=== PATIENT | female | born 1950 | race Caucasian/White ===

== ENCOUNTER 2016-11-08 05:48 | Day surgery (SDC) | payer MEDICARE, OTHER ==
[2016-11-05 14:54] LABS: HEMATOCRIT 38.1 % (36.0-48.0); HEMOGLOBIN 12.7 g/dL (12-16); MCH 31.3 pg (26.0-34.0); MCHC 33.3 g/dL (31.0-37.0); MCV 93.8 fL (80.0-100.0); MEAN PLATELET VOLUME 10.7 fL (7.4-10.4); RBC 4.06 10x6/uL (4.00-5.40); RDW 13.2 % (11.5-14.5); WBC 5.5 10x3/uL (4.8-10.8)
[~2016-11-08] VITALS: Ht 157.5 cm; Wt 52.2 kg
[~2016-11-08 05:48] MED LIST: ELAVIL25 MG PO; LEVOTHYROXINE50 MCG PO; MOBIC7.5 MG PO; MULTIPLE VITAMI1 TA1 PO; ZYRTEC10 MG PO
[2016-11-08 09:23] VITALS: BP 117/75; Ht 157.5 cm; Wt 52.2 kg
[2016-11-08] MEDS ORDERED: PERCOCET 10/3251 TA1 PO (12:44)
--- NOTE | 2016-11-08 15:16 | NUR ---
5050 DISCHARGE INSTRUCTIONS REVIEWED WITH PATIENT & PENDELUM EXERCISES DEMONSTRATED; VERBALIZED UNDERSTANDING
--- NOTE | 2016-11-10 15:22 | OP ---
PATIENT NAME: RUBINA SELF MEDICAL RECORD: [id number] :46 LOCATION:D.[facility] ADMISSION DATE: SURGEON: DARRIAN GARZA MD DATE OF OPERATION: 11/08/2016 Orthopedic Surgery Operative Note PREOPERATIVE DIAGNOSES: 1. Rotator cuff tear of the right shoulder. 2. Impingement syndrome of the right shoulder. 3. Acromioclavicular arthritis of the left shoulder. POSTOPERATIVE DIAGNOSES: 1. Rotator cuff tear of the right shoulder. 2. Impingement syndrome of the right shoulder. 3. Acromioclavicular arthritis of the left shoulder. PROCEDURES: 1. Arthroscopic rotator cuff repair of the right shoulder. 2. Arthroscopic distal clavicle excision of the right shoulder done through separate incision -- 1 cm. 3. Arthroscopic subacromial decompression, acromioplasty and bursectomy. SURGEON: Darrian Garza MD ANESTHESIA: General. INTRAOPERATIVE COMPLICATIONS: None. SUMMARY OF PATHOLOGIC FINDINGS: The patient has full thickness rotator cuff tearing at the distal aspect of the supraspinatus tendinous footprint. At the greater tuberosity the patient had a profound excoriation of the undersurface of the acromion with coracoacromial ligament attritional changes as well as grade IV AC arthropathy. OPERATIVE SUMMARY IN DETAIL: After obtaining the appropriate preoperative orthopedic surgery consent as well as anesthetic consultation, evaluation and clearance, the patient was brought to the operating room and placed on the operating table in supine position. After general laryngeal mask was administered, the patient was placed in a left lateral decubitus position. All pressure points were well padded to include down leg peroneal pad as well as axillary roll. The patient was held firmly to the operating table. Using the vacuum pack suction system, right upper extremity and shoulder were then prepped and draped in routine sterile fashion. The arm was held in the Arthrex traction boom at 30 degrees of forward flexion, 30 degrees of abduction with 10 pounds of traction laterally. Arthroscopy was established in the glenohumeral joint from a posterior portal. Anterior portal was established in the anterior safe portal. Diagnostic arthroscopy of the rotator cuff showed the above findings. Transarthroscopic rotator cuff tear portal was created and rotator cuff tear was debrided underneath and the supraspinatus tendinous footprint was decorticated for good bleeding bone bed. Attention then turned to the subacromial space. In the subacromial space, the undersurface of the acromion was denuded of all soft tissue elements using the [place] tissue ablation system. Coracoacromial ligament was released. A 5-0 barrel bur was then used to perform acromioplasty at the level of acromioclavicular joint. Having completed this, attention was OPERATIVE REPORT [id number] BETTIEALISERUBINA DAPHNIE turned to the distal clavicle. A separate arthroscopic anterior portal, 1 cm of the distal clavicle was excised using the 5-0 barrel bur. Attention was then returned to the rotator cuff. Further decortication was carried out followed by passing a #2 FiberTape in an inverted mattress fashion, which was then anchored laterally with a 5.5 SwiveLock from Arthrex. Having completed this, arthroscopy portals were closed in routine interrupted fashion using 4-0 Prolene. Sterile dressings were applied. The patient was awakened, taken to recovery room in stable condition. All final needle and sponge counts were correct. TRANSINT:[id number] Voice Confirmation ID: [id number] DOCUMENT ID: [id number] KAYLA LAWSON, DARRIAN BECERRA at 1522 CC: [id number] DICTATION DATE: 11/08/16 1242 CONCRETE PANEL INSTALLER: 11/08/162150 [facility] 11/08/16 [id number] [place] [address]
== END 2016-11-08 14:55 | disposition home or self-care (01) ==
LOC: D.OPS 05:48 → D.PAN 10:30 → D.OPS 14:25 → D.PAN 14:25 → D.OPS 14:55 → D.PAN 15:00
PROVIDERS: Anesthesiology
DX: M75.121 Complete rotator cuff tear or rupture of right shoulder, not specified as traumatic (principal); M75.41 Impingement syndrome of right shoulder; M13.811 Other specified arthritis, right shoulder

== ENCOUNTER → 2019-09-26 12:12 | Outpatient (CLI) | payer MEDICARE, OTHER ==
[2016-11-08 09:23] VITALS: BMI 21.0
--- NOTE | ~2019-09-26 | HEMODYNAMI ---
PATIENT:RUBINA SELF MEDICAL RECORD: [id number] : 46 [facility] ADMISSION DATE: 09/26/19 Generatedon:09/26/201913:51 Patient name: RUBINA SELF Patient #: [id number] SSN: : 1950 Date of study: 09/26/2019 Page: Of Hemodynamic Procedure Report Patient Data Patient Demographics Procedure consent was obtained First Name: RUBINA Gender: Female Last Name: CLAIR : 1950 [facility] Initial: DAPHNIE Age: 69 year(s) Patient #: [id number] Race: Unknown Additional ID: [id number] Contact details [address]: [address] [place] [address] State: [place] City: [place] Zip code: [address] Past Medical History Allergies Allergen Reaction Date Comments Reported Other allergy 09/26/2019 SULFA Admission Admission Data Admission Date: 09/26/2019 Admission Time: 12:12 Procedure Procedure Types Cath Procedure Peripheral Cath Diagnostic Procedure Miscellaneous Aspiration/Injection (Joint) Procedure Description Procedure Date Procedure Date: 09/26/2019 Procedure Start Time: 13:15 Procedure Staff Name Function Rakan Stephens RT Monitor Johnny Felton MD Performing Physician Ella Berrios RN Nurse Procedure Data Cath Procedure Fluoroscopy Diagnostic fluoroscopy Total fluoroscopy Time: 0.4 time: 0.4 min min Diagnostic fluoroscopy Total fluoroscopy dose: 3 dose: 3 mGy mGy Hemodynamics Rest Pre Cath Intra NCS Post Cath Procedure Log Time Note 13:05:49 Rakan Stephens RT (R) (CV) sent for patient. Start room use. 13:05:56 Time tracking: Regular hours (M-F 7:00 - 5:00) 13:06:03 Patient received from Other to IR Alert and oriented. Tansferred to table in Supine position. 13:06:05 Signed procedure consent form obtained from patient. 13:06:07 Full Disclosure recording started 13:06:08 - 13:06:09 Pre-procedure instructions explained to patient. 13:06:10 Pre-procedure instructions explained to patient. 13:06:21 Patient allergic to Other allergySULFA 13:06:27 Is patient on blood thinner?Yes 13:06:38 Right Hip was prepped with betadine and draped in sterile fashion. 13:11:17 Physician arrived 13:11:18 Final Timeout: patient, procedure, and site verified with staff and physician. All members of the team are in agreement. 13:11:18 --------ALL STOP TIME OUT------ 13:11:24 Right groin site verified by team. 13:11:31 Sedation plan: Local Anesthetic Medication:Lidocaine 13:11:49 SAFE-T PLUS MYELOGRAM TRAY opened to sterile field. 13:15:34 Procedure started. 13:15:38 Local anesthetic to right GROIN with Lidocaine 1% by Johnny Felton MD.INITIAL ACCESS ONLY 13:23:27 Isovue 200 15ml used of contrast 13:23:37 Procedure ended.(Physican Out) 13:23:48 Fluoroscopy time 00.40 minutes. 13:23:55 Fluoroscopy dose: 3 mGy 13:23:55 Flurop Dose total: 3 13:24:14 SITE STABLE BANDAIDE APPLIED PT SENT HOME 13:24:38 Full Disclosure recording stopped Device Usage Item Name Manufacture Quantity Catalog Hospital Part Current Minimal Lot# / Number Charge Number Stock Stock Serial# Code SAFE-T CareFusion 1 [id number] PLUS MYELOGRAM TRAY Signature Audit Sargent Stage Time Signature Unsigned Intra-Procedure 09/26/2019 Rakan Rakan Shuffield RT 1:24:32 PM Shuffield RT (R) (CV) 09/26/2019 (R) (CV) 1:36:50 PM Intra-Procedure 09/26/2019 Rakan Rakan Shuffield RT 1:37:39 PM Shuffield RT (R) (CV) 09/26/2019 (R) (CV) 1:43:00 PM Intra-Procedure 09/26/2019 Rakan 1:51:27 PM Angelo RT (R) (CV) [facility] [address] [place] [address]
[~2019-09-26 12:12] MED LIST changes: +PERCOCET 10/3251 TA1 PO
== END | disposition home or self-care (01) ==
LOC: D.RAD 12:12
PROVIDERS: ATTEND Orthopaedic Surgery
DX: M16.11 Unilateral primary osteoarthritis, right hip (principal)

== ENCOUNTER → 2019-11-28 13:37 | Outpatient (CLI) | payer MEDICARE, OTHER ==
[2016-11-08 09:23] VITALS: BMI 21.0
== END | disposition home or self-care (01) ==
LOC: D.LABREF 13:37
PROVIDERS: ATTEND Orthopaedic Surgery
DX: M16.11 Unilateral primary osteoarthritis, right hip (principal)

== ENCOUNTER 2019-11-29 11:23 | Inpatient (IN) | payer MEDICARE, OTHER ==
[~2019-11-29] VITALS: Ht 152.4 cm; Wt 55.0 kg
[2019-12-04] MEDS ORDERED: MAG-OX 400 MG400 MG PO (14:14)
[2019-12-05 09:48] LABS: APTT 21.4 SECONDS (22.8-39.4); INR 0.9 (0.85-1.17); PROTIME 12.1 SECONDS (11.6-15.0)
[2019-12-05 09:55] LABS: ANION GAP 11.5 mmol/L (8-16); CALCIUM 9.1 mg/dL (8.5-10.1); CARBON DIOXIDE 28.3 mmol/L (21.0-32.0); CREATININE - SERUM 0.9 mg/dL (0.6-1.3); POTASSIUM - SERUM 3.8 mmol/L (3.5-5.1)
[2019-12-05 10:14] LABS: BASOPHILS 1.3 % (0-2); EOSINOPHILS 4.9 % (0-7); IMMATURE GRANULOCYTES 0.2 % (0-5); MCH 31.6 pg (26.0-34.0); MCHC 32.6 g/dL (31.0-37.0); MCV 97.1 fL (80.0-100.0); MEAN PLATELET VOLUME 9.2 fL (7.4-10.4); MONOCYTES 12.4 % (2-11); NEUTROPHILS 54.2 % (40-80); RBC 4.43 10x6/uL (4.00-5.40); RDW 13.1 % (11.5-14.5); WBC 6.4 10x3/uL (4.8-10.8)
[2019-12-05 10:20] LABS: PLATELET COUNT 377 10x3/uL (130-400)
[2019-12-11 11:19] VITALS: BP 101/73; BMI 23.4
--- NOTE | 2019-12-11 13:27 | NUR ---
THROUGH TRAFFIC KEPT TO MINIMUM. HIBACLENS AND ALCOHOL APPLIED BEFORE CHLORAPREP. STERILE GOWNED AND GLOVED TO SCRUB WITH CHLORAPREP
--- NOTE | 2019-12-11 15:26 | MORECARE ---
CASE MANAGEMENT DISCHARGE SUMMARY PATIENT: RUBINA SELF UNIT: [id number] ADM DATE: 12/11/19 AGE: 69 : 48 SEX: F ROOM/BED: D.1207 AUTHOR: FORD GAY PHYSICIAN: REFERRING PHYSICIAN: KIARA DUNN DO DATE OF SERVICE: 12/11/19 Discharge Plan Patient Name: RUBINA SELF Facility: [facility]:[place] : 1950 Planned Disposition: Anticipated Discharge Date: Discharge Date: Expected LOS: 0 Initial Reviewer: [email or web address] Initial Review Date: 12/11/2019 Generated: 12/11/19 4:25 pm Patient Name: RUBINA SELF Page [phone] at 1526 All edits/amendments must be made on the electronic document DICTATION DATE: 12/11/19 1525 MATTRESS STRIPPER: ISHMAEL 12/11/19 1525 RPT#: [id number] [place] DATE: STATUS: ADM IN [facility] [address] [place] [address] END OF REPORT
[2019-12-11 15:44] VITALS: BP 120/75
[2019-12-11 16:18] VITALS: BP 123/71
--- NOTE | 2019-12-11 16:21 | NUR ---
RECEIVED PT FROM RECOVERY. PT IS AAO AND ANSWERS ALL QUESTIONS APPROPRIATELY. NO S/S OF DISTRESS NOTED. RR EVEN AND UNLABORED ON RA. VSS AND WNL. 1/2NS INFUSING @50ML/HR VIA L.FOR PIV. PT DENIES ANY NEEDS AT THIS TIME. WILL CTM.
[2019-12-11 16:45] VITALS: Ht 152.4 cm; Wt 55.0 kg
[2019-12-11 20:38] VITALS: BP 113/80
--- NOTE | 2019-12-11 21:40 | NUR ---
PT IS AWAKE ALERT AND ORIENTED X4 NO SIGNS OF DISTRESS NOTED. RESPIRATIONS EVEN AND UNLABORED. VITAL SIGNS ARE STABLE. PT C/O OF PAIN TO RIGHT HIP. PRN MEDICATION GIVEN. SALTINE CRACKERS GIVEN PER PTS REQUEST. PT ENCOUARGED TO CALL FOR HELP WHEN GETTING IN AND OUT OF BED. CALL LIGHT WITH IN REACH. WILL CONTINUE TO MONITOR
[2019-12-12 01:05] VITALS: BP 114/77
--- NOTE | 2019-12-12 03:23 | NUR ---
PT RESTING QUIETLY WITH EYES CLOSED. EASILY AWAKEN WITH VOICE STIMULATION. PT ENCOUARGED TO TURN COUGH AND DEEP BREATH. INCENTIVE SPIROMETER CALL LIGHT AND OTHER PERSONAL ITEMS WITH IN REACH. PT VOIDS ON BEDPAN. PT C/O PAINPRN PAIN MEDICATIN GIVEN. PT ENCOAURAGED TO CALL FOR HELP WHEN NEEDED. WILL CONTINUE TO MONITOR
[2019-12-12 04:51] VITALS: BP 109/72
[2019-12-12 05:20] LABS: BASOPHILS 0.3 % (0-2); EOSINOPHILS 0.5 % (0-7); HEMATOCRIT 37.3 % (36.0-48.0); HEMOGLOBIN 12.1 g/dL (12-16); IMMATURE GRANULOCYTES 0.3 % (0-5); LYMPHOCYTES 11.7 % (15-50); MCH 31.5 pg (26.0-34.0); MCHC 32.4 g/dL (31.0-37.0); MCV 97.1 fL (80.0-100.0); MEAN PLATELET VOLUME 9.4 fL (7.4-10.4); MONOCYTES 11.9 % (2-11); NEUTROPHILS 75.3 % (40-80); PLATELET COUNT 334 10x3/uL (130-400); RBC 3.84 10x6/uL (4.00-5.40); RDW 13.2 % (11.5-14.5)
[2019-12-12 05:41] LABS: ANION GAP 12.4 mmol/L (8-16); CALCIUM 8.7 mg/dL (8.5-10.1); CARBON DIOXIDE 25.9 mmol/L (21.0-32.0); CREATININE - SERUM 0.9 mg/dL (0.6-1.3); POTASSIUM - SERUM 4.3 mmol/L (3.5-5.1)
--- NOTE | 2019-12-12 07:05 | NUR ---
ALERT AND ORIENTED. NO C/O PAIN. NO S/S OF ACUTE DISTRESS NOTED. DRESSING TO RIGHT HIP, C/D/I. WEARS GLASSES. IV TO LEFT FOREARM, 1/2 NS INFUSING @ 50ML/HR. SITE PATENT WITHOUT REDNESS OR SWELLING. DENIES ANY NEEDS AT THIS TIME. CALL LIGHT IN REACH. WILL CONTINUE TO MONITOR.
--- NOTE | 2019-12-12 08:21 | OP ---
PATIENT NAME: RUBINA SELF MEDICAL RECORD: [id number] :46 LOCATION:D. D.1207 ADMISSION DATE:12/11/19 SURGEON: JOHNNY DUNN DO DATE OF OPERATION: 12/11/2019 PROCEDURE PERFORMED: Right total hip arthroplasty. PREOPERATIVE DIAGNOSIS: Right hip osteoarthritis. POSTOPERATIVE DIAGNOSIS: Right hip osteoarthritis. INDICATIONS: Ms. Self is a 69-year-old female who presented to my office with hip x-rays complained of hip pain, trouble getting in and out of a car, tying her shoes. She is tired of dealing that and had intra-articular injection, which did not help. She had a couple other opinions and decided to have her hip replaced. I informed of the risks including infection, bleeding, damage to nerves and vessels including the femoral nerve and the lateral femoral cutaneous nerve, continued pain, fracture, bleeding, failure of implant, need for further surgery, blood clots, and even and she signed the consent. SURGEON: Johnny Dunn DO She is also aware of the risk of blood clots and even and she signed the consent. DESCRIPTION OF PROCEDURE: The patient was taken to the operative suite, laid in supine position, given general anesthetic and intubated. She was given a gram of Ancef and 80 mg gentamicin. The patient was then sedated and intubated. She was also given a gram of TXA. She was then positioned on the [place] table. The right hip was then prepped and draped in sterile fashion. Timeout was performed, everyone was in agreement of the correct side, site, patient, and procedure. We then began by dissecting down through the skin to the tensor fascia pb muscle belly. The muscle belly was encountered. The fascia was taken anteriorly and the muscle belly posteriorly. I opened up the rectus interval. The rectus then taken medially and tensor fascia laterally. I then made careful dissection down to the ascending branch of lateral femoral circumflex artery tied off and coagulated and opened the capsule. The capsule was then opened and Hohmanns were placed around the neck and then made a femoral neck cut. Once the neck cut was made, the head was removed. I then removed the labrum from around the acetabulum and the pulvinar was removed as well as ligamentum teres. Bleeding was coagulated with Aquamantys. I then reamed up to a 48; 48 cup was then packed into place and the liner was placed in and then exposed the femur and broached. I used cookie cutter and canal finder first then broached to a 6 then trialed this and I need to cut the femur a little bit more. The femoral neck was then cut a little more and I broached back from 4 up to an 8, 8 fit well with -6 neck and this had good lengths comparatively to the left side on AP pelvis. I decided to go with 8 stem. The implants were then opened. The site was irrigated. The implant was impacted into place and the head was impacted on dual mobility head. This hip was then reduced and x-rays were taken. There was no fracture seen in the femur. There was good equal length between the left and right femurs on x-ray. The site was then irrigated with 10% povidone iodine and 500 mL of normal saline and set for 3 minutes, irrigated that out. Once this was irrigated out, the patient was given another gram of TXA and then Janice, vancomycin-tobramycin powder placed in the wound and closed the tensor fascia pb fascia with #1 Vicryl, first in OPERATIVE REPORT [id number] RUBINA SELF [id number] and then a running locking stitch. After the running locking stitch was done, Timmy Moore came in along with Justin Woods and they then closed the skin with 2-0 Vicryl in inverted interrupted fashion, 4-0 Monocryl ran on the skin and Prineo glue placed on the skin. The patient was then awakened and taken to recovery in stable condition. BLOOD LOSS: Approximately 250 mL. COMPLICATIONS: None. TRANSINT:[id number] Voice Confirmation ID: [id number] DOCUMENT ID: [id number] JOHNNY DUNN DO at 0821 CC: [id number] DICTATION DATE: 12/11/191421 FILM PROCESSING SUPERVISOR: 12/11/192241 ADM IN [facility] [address] [place] [address]
[2019-12-12 09:11] LABS: SPECIFIC GRAVITY 1.015 (1.005-1.020)
[2019-12-12 09:12] LABS: BILIRUBIN NEGATIVE (NEGATIVE); GLUCOSE NEGATIVE (NEGATIVE); KETONE SMALL mg/dL (NEGATIVE); NITRITE NEGATIVE (NEGATIVE); UROBILINOGEN NORMAL (NORMAL)
[2019-12-12 09:17] VITALS: BP 101/66
--- NOTE | 2019-12-12 10:24 | NUR ---
UP IN CHAIR AT BEDSIDE. REQUESTED AND GIVEN 5MG OXY WITH 50 VISTARIL PO FOR C/O RIGHT HIP PAIN LEVEL 9. WILL MONITOR.
[2019-12-12 16:00] VITALS: BP 111/63
--- NOTE | 2019-12-12 18:42 | NUR ---
ALERT AND ORIENTED. NO C/O PAIN. NO S/S OF ACUTE DISTRESS NOTED. DENIES ANY NEEDS AT THIS TIME. CALL LIGHT IN REACH. WILL CONTINUE TO MONITOR.
--- NOTE | 2019-12-12 18:55 | NUR ---
BEDSIDE REPORT COMPLETE. PT LYING IN BED WATCHING TV. ALERT AND ORIENTED X4. DENIES ANY NEEDS. C/O BILATERAL HIP PAIN LAST PAIN MEDICATIONS GIVEN @ 1651. ICE PLACED ON BILATERAL HIPS. LEFT FOREARM IV INFUSING 1/2NS @ 50ML/HR. CALL LIGHT WITHIN REACH. FALL PRECAUTIONS IN PLACE. CPOC.
--- NOTE | 2019-12-12 19:39 | NUR ---
I have reviewed this patient and I concur with the Shift Assessment completed by the Licensed Practical Nurse today this shift.
[2019-12-12 20:00] VITALS: BP 106/62
--- NOTE | 2019-12-12 23:46 | NUR ---
PT LYING IN BED ON LEFT SIDE EYES CLOSED RESTING COMFORTABLY. RR EVEN AND UNLABORED. CALL LIGHT WITHIN REACH. FALL PRECAUTIONS IN PLACE. CPOC
[2019-12-13] VITALS: BP 102/58
--- NOTE | 2019-12-13 02:28 | NUR ---
PT LYING IN BED EYES CLOSED RESTING COMFORTABLY. RR EVEN AND UNLABORED. CALL LIGHT WITHIN REACH. FALL PRECAUTIONS IN PLACE. CPOC
[2019-12-13 04:00] VITALS: BP 102/49
[2019-12-13 06:24] LABS: BASOPHILS 0.1 % (0-2); EOSINOPHILS 0.6 % (0-7); HEMATOCRIT 32.3 % (36.0-48.0); IMMATURE GRANULOCYTES 0.1 % (0-5); LYMPHOCYTES 7.8 % (15-50); MCH 32.3 pg (26.0-34.0); MCHC 34.1 g/dL (31.0-37.0); MEAN PLATELET VOLUME 9.6 fL (7.4-10.4); MONOCYTES 11.1 % (2-11); NEUTROPHILS 80.3 % (40-80); RBC 3.41 10x6/uL (4.00-5.40); RDW 12.8 % (11.5-14.5); WBC 8.9 10x3/uL (4.8-10.8)
[2019-12-13 06:35] LABS: CALC OSMOLALITY 258 mosm/kg (275-300); CALCIUM 8.6 mg/dL (8.5-10.1); CHLORIDE - SERUM 97 mmol/L (98-107); CREATININE - SERUM 0.7 mg/dL (0.6-1.3); GLUCOSE 106 mg/dL (74-106); SODIUM 130 mmol/L (136-145); eGFR NON AFRICAN AMERICAN 87 mL/min (90-120)
[2019-12-13 06:36] LABS: UREA NITROGEN 7 mg/dL (7-18)
[2019-12-13 06:44] LABS: MCV 94.7 fL (80.0-100.0); PLATELET COUNT 240 10x3/uL (130-400)
--- NOTE | 2019-12-13 06:55 | NUR ---
ALERT AND ORIENTED. NO C/O PAIN. NO S/S OF ACUTE DISTRESS NOTED. POD #2 RIGHT HIP, DRESSING C/D/I. SWELLING PRESENT. WEARS GLASSES. IV TO LEFT FOREARM, 1/2 NS INFUSING @ 50ML/HR. SITE PATENT WITHOUT REDNESS OR SWELLING. DENIES ANY NEEDS AT THIS TIME. CALL LIGHT IN REACH. WILL CONTINUE TO MONITOR.
[2019-12-13 08:05] VITALS: BP 112/64
--- NOTE | 2019-12-13 13:07 | MORECARE ---
CASE MANAGEMENT DISCHARGE SUMMARY PATIENT: LEELEE SELF UNIT: [id number] ADM DATE: 12/11/19 AGE: 69 : 48 SEX: F ROOM/BED: D.1207 AUTHOR: FORD GAY PHYSICIAN: REFERRING PHYSICIAN: KIARA DUNN DO DATE OF SERVICE: 12/13/19 Discharge Plan Patient Name: LEELEE SELF Facility: [facility]:[place] : 1950 Planned Disposition: Anticipated Discharge Date: Discharge Date: Expected LOS: 0 Initial Reviewer: [email or web address] Initial Review Date: 12/11/2019 Generated: 12/13/19 2:07 pm Coverage Notice Reviewer: [id number] - Miesha Avery Notice Issued Date-Time: 12/13/2019 12:02 Notice Type: IM Discharge Notice Notice Delivered To: Patient Relationship to Patient: Self Manager Of Software Development Name: Leelee Self Delivery Method: HAND - Hand Delivered Antoinette Days: Prior Verbal Notification: Recipient Understood Notice: Yes Recipient Signature: Yes Med Rec Note Co-signed by Attending: Coverage Notice Comment: DC IMM signed/given DC IMM. original to chart. Last DP export: 12/11/19 2:26 p Patient Name: LEELEE SELF Page [phone] at 1307 All edits/amendments must be made on the electronic document DICTATION DATE: 12/13/19 1307 AUSTRALIAN RULES FOOTBALLER: ISHMAEL 12/13/19 1307 RPT#: [id number] DC DATE: STATUS: ADM IN [facility] [address] [place] [address] END OF REPORT
--- NOTE | 2019-12-13 14:28 | NUR ---
I have reviewed this patient and I concur with the Shift Assessment completed by the Licensed Practical Nurse today this shift.
--- NOTE | 2019-12-13 17:04 | MORECARE ---
CASE MANAGEMENT DISCHARGE SUMMARY PATIENT: LEELEE SELF UNIT: [id number] ADM DATE: 12/11/19 AGE: 69 : 48 SEX: F ROOM/BED: D.1207 AUTHOR: FORD GAY PHYSICIAN: REFERRING PHYSICIAN: KIARA DUNN DO DATE OF SERVICE: 12/13/19 Discharge Plan Patient Name: LEELEE SELF Facility: [facility]:[place] : 1950 Planned Disposition: Anticipated Discharge Date: Discharge Date: Expected LOS: 0 Initial Reviewer: [email or web address] Initial Review Date: 12/11/2019 Generated: 12/13/19 6:04 pm Comments DCP- Discharge Planning Updated by ROXY: Miesha Avery on 12/13/19 4:[address] DC Plan: [facility] OP Therapy. First appointment Tuesday @3:00 pm for evaluation. , . faxed required information to Fx #[phone]. Coverage Notice Reviewer: [id number] Jacob Avery Notice Issued Date-Time: 12/13/2019 12:02 Notice Type: IM Discharge Notice Notice Delivered To: Patient Relationship to Patient: Self Rail Walker Name: Leelee Self Delivery Method: HAND - Hand Delivered Antoinette Days: Prior Verbal Notification: Recipient Understood Notice: Yes Recipient Signature: Yes Med Rec Note Co-signed by Attending: Coverage Notice Comment: DC IMM signed/given DC IMM. original to chart. Reviewer: [email or web address] Jacob Avery Notice Issued Date-Time: 12/13/2019 16:53 Notice Type: Patient Choice Letter Notice Delivered To: Patient Relationship to Patient: Self Rail Walker Name: Leelee Self Delivery Method: HAND - Hand Delivered Antoinette Days: Prior Verbal Notification: Recipient Understood Notice: Yes Recipient Signature: Yes Med Rec Note Co-signed by Attending: Coverage Notice Comment: Patient choice for [facility]. Last DP export: 12/13/19 12:07 p Patient Name: LEELEE SELF Page [phone] at 1704 All edits/amendments must be made on the electronic document DICTATION DATE: 12/13/191703 AUTO INSPECTION SPECIALIST: ISHMAEL 12/13/191703 RPT#: [id number] DC DATE: STATUS: ADM IN [facility] [address] [place] [address] END OF REPORT
[2019-12-13] MEDS ORDERED: ELIQUIS2.5 MG PO (17:07)
[2019-12-13] MEDS ORDERED: OXYCODONE HCL5 M1 PO (17:08)
[2019-12-13] MEDS ORDERED: KEFLEX500 MG PO (17:08)
[2019-12-13] MEDS ORDERED: VISTARIL50 MG PO (17:09)
--- NOTE | 2019-12-13 17:24 | MORECARE ---
CASE MANAGEMENT DISCHARGE SUMMARY PATIENT: LEELEE SELF UNIT: [id number] ADM DATE: 12/11/19 AGE: 69 : 48 SEX: F ROOM/BED: D.1207 AUTHOR: FORD GAY PHYSICIAN: REFERRING PHYSICIAN: KIARA DUNN DO DATE OF SERVICE: 12/13/19 Discharge Plan Patient Name: LEELEE SELF Facility: [facility]:[place] : 1950 Planned Disposition: Outpatient PT\OT Anticipated Discharge Date: 12/13/19 Discharge Date: Expected LOS: 2 Initial Reviewer: [email or web address] Initial Review Date: 12/11/2019 Generated: 12/13/19 6:24 pm Comments DCP- Discharge Planning Updated by ROXY: Miesha Avery on 12/13/19 4:[address] DC Plan: [facility] OP Therapy. First appointment Tuesday @3:00 pm for evaluation. , . faxed required information to Fx #[phone]. Coverage Notice Reviewer: [id number] Jacob Avery Notice Issued Date-Time: 12/13/2019 12:02 Notice Type: IM Discharge Notice Notice Delivered To: Patient Relationship to Patient: Self Job Counselor Name: Leelee Self Delivery Method: HAND - Hand Delivered Antoinette Days: Prior Verbal Notification: Recipient Understood Notice: Yes Recipient Signature: Yes Med Rec Note Co-signed by Attending: Coverage Notice Comment: DC IMM signed/given DC IMM. original to chart. Reviewer: [id number] Jacob Avery Notice Issued Date-Time: 12/13/2019 16:53 Notice Type: Patient Choice Letter Notice Delivered To: Patient Relationship to Patient: Self Job Counselor Name: Leelee Self Delivery Method: HAND - Hand Delivered Antoinette Days: Prior Verbal Notification: Recipient Understood Notice: Yes Recipient Signature: Yes Med Rec Note Co-signed by Attending: Coverage Notice Comment: Patient choice for [facility]. Last DP export: 12/13/19 4:04 p Patient Name: LEELEE SELF Page [phone] at 1724 All edits/amendments must be made on the electronic document DICTATION DATE: 12/13/191723 PSYCHOLOGIST DEVELOPMENTAL: ISHMAEL 12/13/191723 RPT#: [id number] DC DATE: STATUS: ADM IN [facility] [address] [place] [address] END OF REPORT
--- NOTE | 2019-12-13 17:31 | MORECARE ---
CASE MANAGEMENT DISCHARGE SUMMARY PATIENT: LEELEE SELF UNIT: [id number] ADM DATE: 12/11/19 AGE: 69 : 48 SEX: F ROOM/BED: D.1207 AUTHOR: VICTOR HUGO,DOC PHYSICIAN: REFERRING PHYSICIAN: KIARA DUNN DO DATE OF SERVICE: 12/13/19 Discharge Plan Patient Name: LEELEE SELF Facility: [facility]:[place] : 1950 Planned Disposition: Outpatient PT\OT Anticipated Discharge Date: 12/13/19 Discharge Date: Expected LOS: 2 Initial Reviewer: [email or web address] Initial Review Date: 12/11/2019 Generated: 12/13/19 6:30 pm Comments DCP- Discharge Planning Updated by ROXY: Miesha Avery on 12/13/19 4:[address] DC Plan: [facility] OP Therapy. First appointment Tuesday @3:00 pm for evaluation. , . faxed required information to Fx #[phone]. External Providers External Provider: OTHER-OTHER Next Contact Date: Service Request Date: Service Type: Resolution: Reviewer: Comments: Coverage Notice Reviewer: [email or web address] Jacob Avery Notice Issued Date-Time: 12/13/2019 12:02 Notice Type: IM Discharge Notice Notice Delivered To: Patient Relationship to Patient: Self Workers Compensation Claims Analyst Name: Leelee Self Delivery Method: HAND - Hand Delivered Antoinette Days: Prior Verbal Notification: Recipient Understood Notice: Yes Recipient Signature: Yes Med Rec Note Co-signed by Attending: Coverage Notice Comment: DC IMM signed/given DC IMM. original to chart. Reviewer: [id number] Jacob Avery Notice Issued Date-Time: 12/13/2019 16:53 Notice Type: Patient Choice Letter Notice Delivered To: Patient Relationship to Patient: Self Workers Compensation Claims Analyst Name: Leelee Self Delivery Method: HAND - Hand Delivered Antoinette Days: Prior Verbal Notification: Recipient Understood Notice: Yes Recipient Signature: Yes Med Rec Note Co-signed by Attending: Coverage Notice Comment: Patient choice for [facility]. Last DP export: 12/13/19 4:04 p Patient Name: LEELEE SELF Page [phone] at 1731 All edits/amendments must be made on the electronic document DICTATION DATE: 12/13/191729 HYDRAULIC BULL RIVETER OPERATOR: ISHMAEL 12/13/191729 RPT#: [id number] DC DATE: STATUS: ADM IN [facility] [address] [place] [address] END OF REPORT
--- NOTE | 2019-12-13 17:38 | MORECARE ---
CASE MANAGEMENT DISCHARGE SUMMARY PATIENT: LEELEE SELF UNIT: [id number] ADM DATE: 12/11/19 AGE: 69 : 46 SEX: F ROOM/BED: D.1207 AUTHOR: VICTOR HUGO,DOC PHYSICIAN: REFERRING PHYSICIAN: KIARA DUNN DO DATE OF SERVICE: 12/13/19 Discharge Plan Patient Name: LEELEE SELF Facility: [facility]:[place] : 1950 Planned Disposition: Outpatient PT\OT Anticipated Discharge Date: 12/13/19 Discharge Date: Expected LOS: 2 Initial Reviewer: [email or web address] Initial Review Date: 12/11/2019 Generated: 12/13/19 6:37 pm Comments DCP- Discharge Planning Updated by [email or web address]: Miesha Avery on 12/13/19 4:[address] DC Plan: [facility]. First appointment Tuesday @3:00 pm for evaluation. , . faxed required information to Fx #[phone]. Patient request to be DC'd home. Family will drive her home. DCPIA - Discharge Planning Initial Assessment Updated by [email or web address]: Miesha Aevry on 12/13/19 5:35 pm * Is the patient Alert and Oriented? Yes * How many steps to enter\exit or inside your home? * PCP Lorri Talavera APRN [facility] * [facility] * Preadmission Environment Home with Family * ADLs Independent * Equipment Walker * Other Equipment [facility] * List name and contact numbers for known caregivers / representatives who currently or will assist patient after discharge: Hudson Self (spouse) [phone] * Verbal permission to speak to the caregivers and representatives has been obtained from the patient. Yes * Community resources currently utilized None * Please name any agencies selected above. [facility], [facility] [phone] Fa# [phone] * Additional services required to return to the preadmission environment? Yes * Can the patient safely return to the preadmission environment? Yes * Has this patient been hospitalized within the prior 30 days at any hospital? No Coverage Notice Reviewer: [email or web address] Jacob Avery Notice Issued Date-Time: 12/13/2019 12:02 Notice Type: IM Discharge Notice Notice Delivered To: Patient Relationship to Patient: Self Town Planner Name: Leelee Self Delivery Method: HAND - Hand Delivered Antoinette Days: Prior Verbal Notification: Recipient Understood Notice: Yes Recipient Signature: Yes Med Rec Note Co-signed by Attending: Coverage Notice Comment: DC IMM signed/given DC IMM. original to chart. Reviewer: [email or web address] Jacob Avery Notice Issued Date-Time: 12/13/2019 16:53 Notice Type: Patient Choice Letter Notice Delivered To: Patient Relationship to Patient: Self Town Planner Name: Leelee Self Delivery Method: HAND - Hand Delivered Antoinette Days: Prior Verbal Notification: Recipient Understood Notice: Yes Recipient Signature: Yes Med Rec Note Co-signed by Attending: Coverage Notice Comment: Patient choice for [facility]. Last DP export: 12/13/19 4:31 p Patient Name: LEELEE SELF Page [id number] at 1738 All edits/amendments must be made on the electronic document DICTATION DATE: 12/13/191736 TRAINING TECHNICIAN: ISHMAEL 12/13/191736 RPT#: [id number] DC DATE: STATUS: ADM IN [facility] [address] [place] [address] END OF REPORT
--- NOTE | 2019-12-13 18:37 | NUR ---
DISCHARGED PATIENT HOME WITH FAMILY VIA WHEELCHAIR. DISCONTINUED IV, CATHETER TIP INTACT. WENT OVER DISCHARGE PAPERWORK WITH PATIENT, VERBALIZED UNDERSTANDING. DENIES ANYTHING FURTHER.
--- NOTE | 2019-12-14 08:45 | MORECARE ---
CASE MANAGEMENT DISCHARGE SUMMARY PATIENT: LEELEE SELF UNIT: [id number] ADM DATE: 12/11/19 AGE: 69 : 46 SEX: F ROOM/BED: D.1207 AUTHOR: VICTOR HUGO,DOC PHYSICIAN: REFERRING PHYSICIAN: KIARA DUNN DO DATE OF SERVICE: 12/14/19 Discharge Plan Patient Name: LEELEE SELF Facility: [facility]:[place] : 1950 Planned Disposition: Outpatient PT\OT Anticipated Discharge Date: 12/13/19 Discharge Date: 12/13/2019 Expected LOS: 2 Initial Reviewer: [email or web address] Initial Review Date: 12/11/2019 Generated: 12/14/19 9:44 am Comments DCP- Discharge Planning Updated by [email or web address]: Miesha Avery on 12/13/19 4:[address] DC Plan: [facility]. First appointment Tuesday @3:00 pm for evaluation. , . CM faxed required information to Fx #[phone]. Patient request to be DC'd home. Family will drive her home. DCPIA - Discharge Planning Initial Assessment Updated by [email or web address]: Miesha Avery on 12/13/19 5:35 pm * Is the patient Alert and Oriented? Yes * How many steps to enter\exit or inside your home? * PCP Lorri Talavera APRN [facility] * [facility] * Preadmission Environment Home with Family * ADLs Independent * Equipment Walker * Other Equipment [facility] * List name and contact numbers for known caregivers / representatives who currently or will assist patient after discharge: Hudson Self (spouse) [phone] * Verbal permission to speak to the caregivers and representatives has been obtained from the patient. Yes * Community resources currently utilized None * Please name any agencies selected above. [facility], [facility] [phone] Fa# [phone] * Additional services required to return to the preadmission environment? Yes * Can the patient safely return to the preadmission environment? Yes * Has this patient been hospitalized within the prior 30 days at any hospital? No Coverage Notice Reviewer: [id number] Jacob Avery Notice Issued Date-Time: 12/13/2019 12:02 Notice Type: IM Discharge Notice Notice Delivered To: Patient Relationship to Patient: Self Medication Nurse Name: Leelee Self Delivery Method: HAND - Hand Delivered Antoinette Days: Prior Verbal Notification: Recipient Understood Notice: Yes Recipient Signature: Yes Med Rec Note Co-signed by Attending: Coverage Notice Comment: DC IMM signed/given DC IMM. original to chart. Reviewer: [id number] Jacob Avery Notice Issued Date-Time: 12/13/2019 16:53 Notice Type: Patient Choice Letter Notice Delivered To: Patient Relationship to Patient: Self Medication Nurse Name: Leelee Self Delivery Method: HAND - Hand Delivered Antoinette Days: Prior Verbal Notification: Recipient Understood Notice: Yes Recipient Signature: Yes Med Rec Note Co-signed by Attending: Coverage Notice Comment: Patient choice for [facility]. Last DP export: 12/13/19 4:38 p Patient Name: LEELEE SELF Page [id number] at 0845 All edits/amendments must be made on the electronic document DICTATION DATE: 12/14/1946 LENS DOTTER: ISHMAEL 12/14/19 0844 RPT#: [id number] DC DATE:12/13/19 STATUS: DIS IN [facility] [address] [place] [address] END OF REPORT
== END 2019-12-13 18:40 | disposition home or self-care (01) | DRG 470 ==
LOC: D.MS 12-05 10:00 → D.SDCHOLD 12-11 09:47 → D.M3 12-11 09:47 → D.MS 12-11 10:00 → D.M3 12-11 15:00
PROVIDERS: Internal Medicine Nephrology; ADMIT Orthopaedic Surgery; ATTEND Orthopaedic Surgery
PROC: 0SR90JZ Replacement of Right Hip Joint with Synthetic Substitute, Open Approach (ICD-10-PCS; principal; 2019-12-11 11:15)
DX: M16.11 Unilateral primary osteoarthritis, right hip (principal); E87.1 Hypo-osmolality and hyponatremia; E03.9 Hypothyroidism, unspecified; K57.90 Diverticulosis of intestine, part unspecified, without perforation or abscess without bleeding

== ENCOUNTER 2019-12-17 13:06 | Emergency (ER) | payer MEDICARE, OTHER ==
[~2019-12-17] VITALS: Ht 152.4 cm; Wt 54.5 kg
[~2019-12-17 13:06] MED LIST changes: +ELIQUIS2.5 MG PO; +KEFLEX500 MG PO; +MAG-OX 400 MG400 MG PO; +OXYCODONE HCL5 M1 PO; +VISTARIL50 MG PO
[2019-12-17 13:36] VITALS: BP 127/74; Ht 152.4 cm; Wt 54.5 kg
[2019-12-17 14:47] LABS: BASOPHILS 0.4 % (0-2); EOSINOPHILS 3.2 % (0-7); HEMATOCRIT 29.6 % (36.0-48.0); HEMOGLOBIN 9.8 g/dL (12-16); IMMATURE GRANULOCYTES 0.4 % (0-5); LYMPHOCYTES 19.1 % (15-50); MCH 31.6 pg (26.0-34.0); MCHC 33.1 g/dL (31.0-37.0); MCV 95.5 fL (80.0-100.0); MEAN PLATELET VOLUME 8.5 fL (7.4-10.4); MONOCYTES 10.4 % (2-11); NEUTROPHILS 66.5 % (40-80); RDW 12.9 % (11.5-14.5); WBC 7.1 10x3/uL (4.8-10.8)
[2019-12-17 15:00] LABS: ANION GAP 9.5 mmol/L (8-16); CALCIUM 8.9 mg/dL (8.5-10.1); CARBON DIOXIDE 30.9 mmol/L (21.0-32.0); POTASSIUM - SERUM 3.4 mmol/L (3.5-5.1)
[2019-12-17 15:05] LABS: PLATELET COUNT 410 10x3/uL (130-400)
[2019-12-17 15:06] LABS: ALBUMIN 2.8 g/dL (3.4-5.0); BILIRUBIN - TOTAL 0.49 mg/dL (0.2-1.3); PROTEIN - SERUM 6.8 g/dL (6.4-8.2)
== END 2019-12-17 17:00 | disposition home or self-care (01) ==
LOC: D.ER 13:06
PROVIDERS: Family Medicine
DX: R22.41 Localized swelling, mass and lump, right lower limb (principal); D64.9 Anemia, unspecified; E87.6 Hypokalemia; E87.1 Hypo-osmolality and hyponatremia; E03.9 Hypothyroidism, unspecified; Z96.641 Presence of right artificial hip joint